=== PATIENT | female | born 1940 | race Caucasian/White ===

== ENCOUNTER 2018-10-04 00:44 | Outpatient (CLI) | payer MEDICARE, SELFPAY ==
--- NOTE | 2018-10-04 10:23 | MERGE_ITS ---
*[facility]* *[facility]* [address] [place] [address] Date of study: 10/04/2018 Transthoracic Echocardiography M-mode, complete 2D, complete spectral Doppler, and color Doppler *STUDY CONCLUSIONS* Summary: 1. Left ventricle: The cavity size was normal. Wall thickness was normal. Systolic function was normal. The estimated ejection fraction was 60-65%. Wall motion was normal; there were no regional wall motion abnormalities. 2. Right ventricle: The cavity size was normal. Systolic function was normal. 3. Mitral valve: Mildly calcified annulus. There was mild regurgitation. *PATIENT PRESENTATION* Height: 165.1cm ((65in) ) S/D Pressure: 126 / 75 Weight: 70.3kg ((154.7lb) ) BSA: 1.81m^2 Test start time: 10:30 AM. Test stop time: 11:30 AM. PERFORMING Unknown ORDERING Mary Sauer REFERRING Mary Sauer PERFORMING [facility] MATERIALS PLANNING ANALYST Lilli Jordan *PROCEDURE DATA* Procedure information: This study was interpreted by [facility]. Pertinent images and digital data are archived for permanent storage and are available for subsequent review. Comparison was made to the study of 03/11/2007. Study status: Routine. Transthoracic echocardiography. M-mode, complete 2D, complete spectral Doppler, and color Doppler. A Transthoracic Echocardiogram was performed. Scanning was performed from the parasternal, apical, subcostal, and suprasternal notch acoustic windows. Images were obtained using an [employer] SC 2000 cardiac ultrasound machine. Image quality was adequate. Study completion: The patient tolerated the procedure well. There were no complications. History: PMH: Murmur. *CARDIAC ANATOMY* Left ventricle: The cavity size was normal. Wall thickness was normal. Systolic function was normal. The estimated ejection fraction was 60-65%. Wall motion was normal; there were no regional wall motion abnormalities. Findings consistent with diastolic dysfunction. There was no evidence of elevated ventricular filling pressure by Doppler parameters. Aortic valve: Trileaflet; normal thickness leaflets. Mobility was not restricted. Doppler: Transvalvular velocity was within the normal range. There was no stenosis. There was no significant regurgitation. VTI ratio of LVOT to aortic valve: 0.93. Valve area (VTI): 2.6cm^2. Indexed valve area (VTI): 1.4cm^2/m^2. Peak velocity ratio of LVOT to aortic valve: 0.99. Valve area (Vmax): 2.8cm^2. Indexed valve area (Vmax): 1.5cm^2/m^2. Mean velocity ratio of LVOT to aortic valve: 0.86. Valve area (Vmean): 2.4cm^2. Indexed valve area (Vmean): 1.3cm^2/m^2. Mean gradient (S): 6.1mm Hg. Peak gradient (S): 10.4mm Hg. Aorta: Aortic root: The aortic root was normal in size. Ascending aorta: The ascending aorta was normal in size. Mitral valve: Mildly calcified annulus. Mobility was not restricted. Doppler: Transvalvular velocity was within the normal range. There was no evidence for stenosis. There was mild regurgitation. Valve area by pressure half-time: 2.9cm^2. Indexed valve area by pressure half-time: 1.6cm^2/m^2. Peak gradient (D): 2.6mm Hg. Left atrium: The atrium was normal in size. Right ventricle: The cavity size was normal. Systolic function was normal. Pulmonic valve: Poorly visualized. Doppler: Transvalvular velocity was within the normal range. There was no evidence for stenosis. There was no significant regurgitation. Tricuspid valve: Structurally normal valve. Doppler: Transvalvular velocity was within the normal range. There was no evidence for stenosis. There was mild regurgitation. Pulmonary artery: Poorly visualized. Pulmonary systolic pressure was within the normal range, in the range of 25mm Hg to 30mm Hg. Right atrium: The atrium was normal in size. Pericardium: There was no pericardial effusion. Systemic veins: Inferior vena cava: Poorly visualized. Measurements Left ventricle Value Reference LV ID, ED, PLAX 3.9 cm 3.5 - 6.0 LV ID, ES, PLAX 2.7 cm 2.1 - 4.0 LV PW thickness, ED, PLAX 0.8 cm LV end-diastolic volume, 1-p A2C 120 ml LV ejection fraction, 1-p A2C 74 % LV end-diastolic volume, 1-p A4C 73 ml LV ejection fraction, 1-p A4C 68 % LV e', lateral 0.109 m/sec LV E/e', lateral 7 LV e', medial 0.09 m/sec LV E/e', medial 9 LV e', average 0.1 m/sec LV E/e', average 8 Ventricular septum Value Reference IVS thickness, ED, PLAX 0.8 cm LVOT Value Reference LVOT ID, A-P 1.9 cm LVOT area 2.8 cm^2 LVOT peak velocity, S 1.6 m/sec LVOT mean velocity, S 1.02 m/sec LVOT VTI, S 33.5 cm LVOT peak gradient, S 10.3 mm Hg LVOT mean gradient, S 5 mm Hg Stroke volume (SV), LVOT DP 93 ml Stroke index (SV/bsa), LVOT DP 52 ml/m^2 Aortic valve Value Reference Aortic valve peak velocity, S 1.6 m/sec Aortic valve mean velocity, S 1.19 m/sec Aortic valve VTI, S 36.0 cm Aortic mean gradient, S 6.1 mm Hg Aortic peak gradient, S 10.4 mm Hg VTI ratio, LVOT/AV 0.93 Aortic valve area, VTI 2.6 cm^2 Velocity ratio, peak, LVOT/AV 0.99 Aortic valve area, peak velocity 2.8 cm^2 Velocity ratio, mean, LVOT/AV 0.86 Aortic valve area, mean velocity 2.4 cm^2 Aortic valve area/bsa, mean velocity 1.3 cm^2/m^2 Aorta Value Reference Aortic root ID, ED 3.1 cm Ascending aorta ID, A-P, S 3.5 cm Left atrium Value Reference LA ID, A-P, ES 2.9 cm LA ID/bsa, A-P 1.6 cm/m^2 <=2.2 LA area, ES, A4C 10.5 cm^2 8.8 - 23.4 LA area, ES, A2C 19 cm^2 LA volume/bsa, S 31 ml/m^2 LA volume, ES, 2-p 49 ml LA volume/bsa, ES, 2-p 27 ml/m^2 LA/aortic root ratio 0.93 Mitral valve Value Reference Mitral E-wave peak velocity 0.81 m/sec Mitral A-wave peak velocity 1.03 m/sec Mitral deceleration time (H) 261 ms 150 - 230 Mitral pressure half-time 76 ms Mitral peak gradient, D 2.6 mm Hg Mitral E/A ratio, peak 0.79 Mitral valve area, PHT, DP 2.9 cm^2 Tricuspid valve Value Reference Tricuspid regurg peak velocity 2.5 m/sec Tricuspid peak RV-RA gradient 24.1 mm Hg Right atrium Value Reference RA area, ES, A4C 10.2 cm^2 8.3 - 19.5 Legend: (L) and (H) yovani values outside specified reference range. I have personally reviewed the images and have reviewed and edited the reported findings. Electronically signed by Sangeetha Bird 10/04/2018 13:09
[2018-10-04 11:03] LABS: ALT 23 U/L (12-78); AST 22 U/L (15-37); Albumin 3.7 g/dL (3.4-5.0); Alkaline Phosphatase 52 U/L (46-116); Anion Gap 11.6 mmol/L (3-11); BUN 22 mg/dL (7-18); Bilirubin, Total 0.7 mg/dL (0.2-1.0); CO2 24.4 mmol/L (21.0-32.0); CREATININE 0.97 mg/dL (0.55-1.02); Calcium 9.2 mg/dL (8.5-10.1); Chloride 103 mmol/L (98-107); Glucose 95 mg/dL (70-100); Potassium 4.4 mmol/L (3.5-5.1); Sodium 139 mmol/L (136-145); Total Protein 7.2 g/dL (6.4-8.2)
== END 2018-10-04 01:04 ==
PROVIDERS: PCP Family Medicine; Visit Provider Family Medicine
DX: R01.1 Cardiac murmur, unspecified (principal); I34.0 Nonrheumatic mitral (valve) insufficiency; R53.83 Other fatigue
CPT/HCPCS: 36415; 80053; 93306

== ENCOUNTER 2019-04-11 02:10 | Outpatient (CLI) | payer MEDICARE, SELFPAY ==
--- NOTE | 2019-04-11 15:02 | DI.MAMMO_ITS ---
SYMPTOM/DIAGNOSIS: SCREENING, Z12.31 MAMMOGRAMS: Mammograms were interpreted according to the usual protocol including computer analysis with CAD system, tomosynthesis and C view imaging. Comparison is made with exams from [id number]. The breasts are composed of scattered fibroglandular densities, breast density, Category B. No suspicious masses or suspicious microcalcifications are seen. There has been no significant change. IMPRESSION: Category 1, negative mammogram. Yearly screening mammography is recommended. [facility] ASSESSMENT OF FINDINGS: Negative. Category 1. Patient will receive a letter notifying them of these results. BI-RADS category B. There are scattered areas of fibroglandular density.
== END 2019-04-11 02:30 ==
PROVIDERS: PCP Family Medicine; Visit Provider Family Medicine
DX: Z12.31 Encounter for screening mammogram for malignant neoplasm of breast (principal)
CPT/HCPCS: 77063; 77067